=== PATIENT | male | born 1955 ===

== ENCOUNTER 2018-10-31 06:36 | Day surgery (SDC) | payer BC, OTHER ==
[~2018-10-31 06:36] MED LIST: Buffered Lidocaine 1% SYRIN* 1 ML/SYRINGE INTRADERM ONE; Famotidine IV* 10 MG/ML 2 ML (20 mg) IV ONE; Lactated Ringers 1000 ML Bag* 1,000 ML IV SCH
[2018-10-31] MEDS ORDERED: fentaNYL* 50 MCG/ML 2 ML VIAL (100 MCG VIAL) ONE (07:48)
[2018-10-31] MEDS ORDERED: Midazolam* 1 MG/ML 5 ML VIAL (5 MG) ONE (07:48)
[2018-10-31] MEDS ORDERED: Famotidine IV* 10 MG/ML 2 ML (20 mg) ONE (08:22)
[2018-10-31] MEDS ORDERED: Lidocaine 1% INJ* 10 MG/ML 30 ML SDV ONE (08:58)
[2018-10-31] MEDS ORDERED: Lidocaine 1% MPF wEPI 200,000* 30 ML SDV ONE (08:58)
[2018-10-31] MEDS ORDERED: ROPIVACAINE 5 MG/ML 30 ML BTL (0.5%) ONE (09:24)
[2018-10-31] MEDS ORDERED: Propofol* 10 MG/ML 20 ML BTL ONE (09:46)
[2018-10-31] MEDS ORDERED: Ondansetron INJ* 2 MG/ML VIAL ONE (09:46)
[2018-10-31] MEDS ORDERED: Dexamethasone IV* 4 MG/ML 1 ML (4 MG) ONE (09:46)
[2018-10-31] MEDS ORDERED: Ketorolac INJ* 30 MG/ML 1 ML VIAL ONE (09:46)
[2018-10-31] MEDS ORDERED: Lidocaine 2% PF * 5 ML VIAL ONE (09:46)
[2018-10-31] MEDS ORDERED: oxyCODONE TAB* 5 MG TAB PO PRN (11:25)
[2018-10-31] MEDS ORDERED: Naloxone* 0.4 MG/ML 1 ML VIAL IV PRN (11:25)
[2018-10-31] MEDS ORDERED: DiMENhydriNATE IV* 50 MG/ML VIAL IV PUSH PRN (11:25)
[2018-10-31] MEDS ORDERED: Acetaminophen TAB* 325 MG PO PRN (11:25)
[2018-10-31] MEDS ORDERED: HYDROmorphone INJ1* 1 MG/ML SYRINGE IV PRN (11:25)
[2018-10-31 12:15] VITALS: BP 147/80
--- NOTE | 2018-10-31 20:46 | OP ---
DATE OF OPERATION: 10/31/18 - [facility] DATE OF : 57 SURGEON: Armando Donnelly MD CLARK DRIVER: BALTA Yeh. An captain assistant was needed for the procedure to aid in positioning of the arm and retraction. ANESTHESIOLOGIST: Dr. Pacheco. ANESTHESIA: General. PRE-OP DIAGNOSES: 1. Left trigger thumb. 2. Left index trigger finger. 3. Left long trigger finger. 4. Left ring trigger finger. 5. Left small trigger finger. POST-OP DIAGNOSES: 1. Left trigger thumb. 2. Left index trigger finger. 3. Left long trigger finger. 4. Left ring trigger finger. 5. Left small trigger finger. OPERATIVE PROCEDURE: 1. Left trigger thumb release of A1 ghazala. 2. Left index trigger finger release of A1 ghazala. 3. Left middle trigger finger release of A1 ghazala. 4. Left ring trigger finger release of A1 ghazala. 5. Left small trigger finger release of A1 ghazala. 6. Excision of ulnar slip of the FDS tendon, left ring finger. 7. Excision of the ulnar slip of the FDS tendon, left small finger. INDICATIONS: Dillon has severe trigger fingers bilaterally, the left a little bit worse than the right. We had talked about his treatment options. He has difficulty even closing the hand. I told him we have to do extensive therapy postoperatively, but we need to do the releases to allow the fingers to move. He understands and wishes to proceed. ESTIMATED BLOOD LOSS: 2 mL. COMPLICATIONS: None. FINDINGS: See above and below. DESCRIPTION OF PROCEDURE: Dillon was seen in the preoperative holding area. The correct side, site, and procedure were identified. We came back to the operating room where the arm was prepped and draped in the usual fashion and time-out was performed. I began by exsanguinating the arm with the Esmarch and the tourniquet was inflated to 250 mmHg. I first made a transverse 1 cm incision over the MP joint flexion crease of the left thumb. Dissection was carried down, and full- thickness flaps were raised off the tendon sheath. The digital nerves were identified and protected. I then released the A1 ghazala longitudinally with a 15 blade and the release was completed distally and proximally with the tenotomy scissors. The wound was irrigated out and the skin was closed with 4- 0 nylon suture. I then made a transverse incision in the distal palmar crease from the index finger all the way over to the small finger. I released the bands of the palmar fascia over each of the A1 pulleys and then full-thickness flaps were raised off of the tendon sheaths for each finger. I began on the middle finger and released the A1 ghazala in its entirety first with a 15 blade by making a longitudinal incision along the radial third of the ghazala and completing the release distally and proximally with the tenotomy scissors. I then came to the ring finger. In a like manner, the digital nerves were protected with Ragnell retractors. The A1 ghazala was incised along the radial third longitudinally with a 15 blade and the release was completed distally and proximally with the tenotomy scissors. I then did the same for the small finger releasing the A1 ghazala along the radial third in line with the tendon. The ghazala was released in its entirety. I then came back to index finger and the digital nerves were protected with the Ragnell retractors and I released the A1 ghazala in similar fashion, first with a 15 blade and then with the tenotomy scissors. After I had completed the releases, I checked for triggering. The ring finger and the small finger were still triggering. The index finger felt just a little tight still. I came back and I released the proximal 10% to 20% of the A2 ghazala with the tenotomy scissors. Great care was taken not to take the release any further distal than that. After this, there was absolutely no triggering in the index and middle fingers and the thumb was excellent. The ring and the small fingers were still triggering. I went ahead and made a small longitudinal incision over the ring finger A1 ghazala as that was the worst of it and this was developed as a T off of my prior transverse incision. This gave me an excellent visualization and I confirmed that the entirety of the A1 ghazala was released and I did not want to do any additional release at the A2 ghazala. Therefore, I made a V-shaped incision and raised a radially based flap over the palmar aspect of the PIP joint of the ring finger. The digital nerves were protected. I made a small longitudinal incision along the ulnar aspect of the A3 ghazala and brought this back transversely with the tenotomy scissors. I then retracted the FDP tendon out of the way. I released the connection between the two slips of the FDS through Camper's chiasm with the tenotomy scissors. I then used a [place] blade to release the ulnar slip of the FDS tendon right off of its footprint off of the base of middle phalanx. I then flexed the finger down fully and retrieved the ulnar slip of the FDS with a right angle in my palm wound. The slip was pulled up into the palm wound and then the tendon slip was bevelled back proximal to the A1 ghazala with the [place] blade until it was released and excised in its entirety. I then ended up having to do the same thing for the small finger. I made a V- shaped radially based incision over the palmar aspect of the PIP joint. Full- thickness flap was raised off of the A3 ghazala. I made a 3 to 4 mm longitudinal incision over the ulnar aspect of the A3 ghazala and then incised the ghazala transversely with the tenotomy scissors. The FDP tendon was retracted out of the way. The Camper's chiasm was released. The ulnar slip of the FDS was released off of its footprint on the base of the middle phalanx. The ulnar slip was delivered into the palm wound and bevelled off ulnarly. Once I had excised those 2 slips of the FDS tendon, there was absolutely no triggering. Everything was looking good at this point, so we irrigated out the wounds. Skin was all closed with 4-0 nylon suture. I infiltrated long-acting local anesthetic all around the operative areas. The wounds were dressed with Xeroform, 4x4s, sterile Webril, and an Sagar bandage. Tourniquet was deflated and the fingers all pinked up immediately. He was taken to the recovery room in stable condition. [id number]/[facility] #: [id number] ALMA
== END 2018-10-31 12:36 | disposition home or self-care (01) ==
LOC: OR 06:36
PROVIDERS: ATTEND Orthopaedic Surgery Hand Surgery
DX: M65.312 Trigger thumb, left thumb (principal); M65.322 Trigger finger, left index finger; M65.352 Trigger finger, left little finger; M65.332 Trigger finger, left middle finger; M65.342 Trigger finger, left ring finger; Z85.46 Personal history of malignant neoplasm of prostate; E11.9 Type 2 diabetes mellitus without complications; Z79.84 Long term (current) use of oral hypoglycemic drugs
CPT/HCPCS: 88304; J1100; J1885; J2001; J2250; J2405; J2704; J2795; J3010